=== PATIENT | female | born 1985 | race Caucasian/White ===

== ENCOUNTER 2016-04-02 12:28 | Emergency (ER) | payer SELFPAY ==
[2016-04-02 14:01] VITALS: BP 120/68
--- NOTE | 2016-04-03 07:55 | ED Physician Documentation ---
Ear Complaints - HISTORIAN Historian: patient - HPI Stated Complaint: Left Ear Pain Chief Complaint: Ear Complaints Timing: still present Location of Pain: L ear Severity: moderate Associated Symptoms: sharp pain Further Comments: no - ROS CONST: no problems CVS/RESP: none GI/: denies: black stools, nausea, vomiting MS/SKIN/LYMPH: none NEURO/PSYCH: denies: weakness, numbness, anxiety, depression All Systems -: Yes - PAST HX Past History: other (psych issues) Immunizations: referred to PCP Allergies/Adverse Reactions: Allergies Allergy/AdvReac Type Severity Reaction Status Date / Time No Known Allergies Allergy Verified 02/02/16 18:58 Home Medications: Ambulatory Orders Medication Instructions Recorded Fluoxetine HCl [Prozac] 10 mg PO DAILY 01/22/16 Olanzapine [Zyprexa] 5 mg pe PO DAILY 01/22/16 Trazodone HCl [Trazodone HCl] 50 mg pe PO HS 01/22/16 - SOCIAL HX Smoking History: cigarettes Alcohol Use: none Drug Use: none - FAMILY HX Family History: No - VITAL SIGNS Vital Signs: Vital Signs Temp Pulse Resp BP Pulse Ox 97.7 F 66 18 120/68 97 04/02/16 12:30 04/02/16 14:00 04/02/16 14:00 04/02/16 14:00 04/02/16 14:00 - REVIEWED ASSESSMENTS Nursing Assessment Reviewed: Yes Vitals Reviewed: Yes Progress - Results/Orders Results/Orders: strep screen ordered - Progress Progress: stable entire time in er Critical Care Note - Critical Care Note Total Time (mins): 0 ED Results Lab/Radiology - Lab Results Lab Results: Lab Results 04/02/16 13:20 Group A Strep Screen Positive H (NEGATIVE) - Radiology Radiology Impressions: none ordered - Orders Orders: ED Orders Category Date Time Status GRP A STREP SCREEN Routine Lab 04/02/16 13:20 Completed Ear Complaint Physical Exam - EXAM General Appearance: alert, moderate distress Ear: auricle nml, brand coordinator.[place]al nml, pain w movement of auricl, right, left Mouth/Throat: lips nml, gums nml, pharyngeal erythema Nose: nml inspection Head/Neck: atraumatic, neck nml inspection Eye: eyes nml inspection, PERRL Resp/CVS: chest non-tender, breath sounds nml, heart sounds nml, no resp. distress, lungs clear, reg. rate & rhythm Abdomen: non-tender, no organomegaly Skin: nml color, no skin rash Neuro/Psych: oriented x3, mood/affect nml Discharge Clincal Impression: Strep pharyngitis Referrals: Primary Doctor,No [Primary Care Provider] - 2 Days Home Medications: Ambulatory Orders Fluoxetine HCl [Prozac] 10 mg PO DAILY 01/22/16 Olanzapine [Zyprexa] 5 mg pe PO DAILY 01/22/16 Trazodone HCl [Trazodone HCl] 50 mg pe PO HS 01/22/16 Comments: home with scripts Condition: Stable Disposition: 01 HOME, SELF-CARE Decision to Admit: NO Decision Time: 13:50
== END 2016-04-02 14:00 | disposition home or self-care (01) ==
LOC: ED 12:28
DX: J02.0 Streptococcal pharyngitis (principal)
CPT/HCPCS: 87880; 99282

== ENCOUNTER 2016-08-16 13:50 | Emergency (ER) | payer SELFPAY ==
[2016-08-16 14:21] VITALS: BP 111/69
--- NOTE | 2016-08-16 14:51 | ED Physician Documentation ---
Ear Complaints - HISTORIAN Historian: patient - HPI Stated Complaint: bilateral ear pain Chief Complaint: Ear Complaints Timing: still present, worse Location of Pain: both ears Severity: severe Associated Symptoms: sharp pain. denies: fever, chills Further Comments: yes (30 year old female patient presents with complaints of bilateral ear pain since last Tuesday, using Tylenol with no improvement.) - ROS CONST: no problems CVS/RESP: none GI/: denies: nausea, vomiting MS/SKIN/LYMPH: none All Systems -: Yes - PAST HX Past History: other (DVT - 2013, resolved with medication) Allergies/Adverse Reactions: Allergies Allergy/AdvReac Type Severity Reaction Status Date / Time No Known Allergies Allergy Verified 02/02/16 18:58 Home Medications: Ambulatory Orders Medication Instructions Recorded NK [NK] 08/16/16 - SOCIAL HX Smoking History: cigarettes - FAMILY HX Family History: No - VITAL SIGNS Vital Signs: Vital Signs Temp Pulse Resp BP Pulse Ox 73 20 111/69 96 08/16/16 13:50 08/16/16 13:50 08/16/16 13:50 08/16/16 13:50 - REVIEWED ASSESSMENTS Nursing Assessment Reviewed: Yes Vitals Reviewed: Yes Ear Complaint Physical Exam - EXAM General Appearance: mild distress Ear: pain w movement of auricl, right, left, erythema, TM's nml Resp/CVS: chest non-tender, breath sounds nml, heart sounds nml Neuro/Psych: oriented x3, mood/affect nml Discharge Clincal Impression: Bilateral otitis externa Qualifiers: Otitis externa type: swimmer's ear Chronicity: acute Qualified Code(s): H60.333 - Swimmer's ear, bilateral Referrals: Primary Doctor,No [Primary Care Provider] - 2 Days Home Medications: Ambulatory Orders NK [NK] 08/16/16 Condition: Stable Disposition: 01 HOME, SELF-CARE Decision to Admit: NO Decision Time: 14:50
== END 2016-08-16 14:57 | disposition home or self-care (01) ==
LOC: ED 13:50
DX: H60.333 Swimmer's ear, bilateral (principal)
CPT/HCPCS: 99282; 99283

== ENCOUNTER 2016-09-16 20:24 | Emergency (ER) | payer SELFPAY ==
[2016-09-16] MEDS ORDERED: 0.9 % SODIUM CHLORIDE 1,000 ML IV ONE (20:43)
[2016-09-16] MEDS ORDERED: FLUMAZENIL 0.1 MG/ML 5ML VIAL IV ONE (20:46)
[2016-09-16] MEDS ORDERED: NALOXONE HCL 2 MG/2 ML IVP ONE (20:46)
[2016-09-16] MEDS ORDERED: 0.9 % SODIUM CHLORIDE 1,000 ML IV SCH (21:00)
[2016-09-16 21:06] LABS: BASOPHILS % 0.5 (0.0-1.5); EOSINOPHILS % 5.7 % (0.0-6.8); MEAN CORPUSCULAR HEMOGLOBIN 32.5 pg (28.0-34.0); MEAN CORPUSCULAR VOLUME 94.1 fl (80.0-100.0); MONOCYTES % 3.9 % (0.0-11.0); NEUTROPHILS # 6.6 # k/uL (1.4-7.7)
[2016-09-16 21:17] LABS: eGFR (African) > 60; eGFR (Non-African) > 60
--- NOTE | 2016-09-16 22:32 | ED Physician Documentation ---
General Adult - HISTORIAN Historian: patient - HPI Stated Complaint: intoxication Chief Complaint: General Adult Additional Information: pt claims she has been given "something" in her Dr. Bagley Onset: hours (1) Timing: still present Severity: moderate - ROS CONST: no problems EYES/ENT: none CVS/RESP: none GI/: none MS/SKIN/LYMPH: none NEURO/PSYCH: other (akesthetic) - PAST HX Past History: none Other History: none Surgeries/Procedures: none Immunizations: referred to PCP Allergies/Adverse Reactions: Allergies Allergy/AdvReac Type Severity Reaction Status Date / Time No Known Allergies Allergy Verified 09/16/16 20:35 Home Medications: Ambulatory Orders Medication Instructions Recorded NK [NK] 08/16/16 - SOCIAL HX Smoking History: cigarettes Alcohol Use: none Drug Use: marijuana, methamphetamines - FAMILY HX Family History: Yes - VITAL SIGNS Vital Signs: Vital Signs Temp Pulse Resp BP Pulse Ox 98.6 F 97 H 16 114/65 96 09/16/16 20:34 09/16/16 20:34 09/16/16 20:34 09/16/16 20:34 09/16/16 20:34 - REVIEWED ASSESSMENTS Nursing Assessment Reviewed: Yes Vitals Reviewed: Yes Progress - Results/Orders Results/Orders: labs unremarkable, thc in urine - Progress Progress: pt. given 1 mg romazicon and 1 mg narcan ivp in er with improvement in symptoms Critical Care Note - Critical Care Note Total Time (mins): 0 ED Results Lab/Radiology - Lab Results Lab Results: Lab Results 09/16/16 09/16/16 21:01 21:01 WBC 11.30 K/ul K/ul (4.00-12.00) RBC 4.08 M/ul M/ul (3.90-5.20) Hgb 13.3 g/dL g/dL (12.0-16.0) Hct 38.4 % % (34.5-46.5) MCV 94.1 fl fl (80.0-100.0) MCH 32.5 pg pg (28.0-34.0) MCHC 34.5 g/dL g/dL (30.0-36.0) RDW 13.3 % % (11.3-14.3) Plt Count 277 K/mm3 K/mm3 (130-400) Neut % (Auto) 58.0 % % (39.0-79.0) Lymph % (Auto) 30.9 % % (16.0-50.0) [place] % (Auto) 3.9 % % (0.0-11.0) Eos % (Auto) 5.7 % % (0.0-6.8) Baso % (Auto) 0.5 (0.0-1.5) Neut # (Auto) 6.6 # k/uL # k/uL (1.4-7.7) Lymph # (Auto) 3.5 # k/uL # k/uL (0.6-4.0) [place] # (Auto) 0.4 # k/uL # k/uL (0.0-0.9) Eos # (Auto) 0.6 # k/uL # k/uL (0.0-0.6) Baso # (Auto) 0.0 # k/uL # k/uL (0.0-0.5) Reactive Lymphs % 1.1 % % (0.0-5.0) Reactive Lymphs # 0.1 # k/uL # k/uL (0.0-0.8) Sodium 141 mmol/L mmol/L (136-145) Potassium 4.0 mmol/L mmol/L (3.5-5.0) Chloride 107 mmol/L mmol/L (98-110) Carbon Dioxide 26 mmol/L mmol/L (20-32) BUN 11 mg/dL mg/dL (10-26) Creatinine 0.6 mg/dL mg/dL (0.4-1.5) Estimated Creat Clear 173 Est GFR ( Amer) > 60 (60 - ) Est GFR (Non-Af Amer) > 60 (60 - ) Glucose 110 mg/dL H mg/dL (70-99) Calcium 8.9 mg/dL mg/dL (8.5-10.5) Total Bilirubin 0.2 mg/dL mg/dL (0.2-1.2) AST 22 U/L U/L (0-41) ALT 12 U/L U/L (0-45) Alkaline Phosphatase 57 U/L U/L (46-116) Total Protein 6.7 g/dL g/dL (6.0-8.5) Albumin 4.1 g/dL g/dL (3.0-5.5) Ethyl Alcohol Pending - Radiology Radiology Impressions: no x-rays ordered - Orders Orders: ED Orders Category Date Time Status Place IV Lock 1T Care 09/16/16 20:48 Active CBC/PLATELET/DIFF Routine Lab 09/16/16 21:01 Completed CMP Routine Lab 09/16/16 21:01 Results DRUG SCREEN URINE MEDICAL ONLY Routine Lab 09/16/16 Ordered ETHANOL MEDICAL USE ONLY Routine Lab 09/16/16 21:01 Results URINALYSIS Routine Lab 09/16/16 20:46 Ordered 0.9 % Sodium Chloride [Normal Saline] 1,000 ml Med 09/16/16 21:00 Ordered IV .Q1H 0.9 % Sodium Chloride [Normal Saline] 1,000 ml Med 09/16/16 20:43 Discontinued IV .STK-MED Flumazenil [Romazicon] Med 09/16/16 20:46 Discontinued 1 mg IV NOW ONE Naloxone HCl [Narcan] Med 09/16/16 20:46 Discontinued 1 mg IVP NOW ONE General Adult Physical Exam - PHYSICAL EXAM GENERAL APPEARANCE: moderate distress EENT: other (pupils constricted) NECK: normal inspection, thyroid normal RESPIRATORY: no resp distress, chest non-tender, breath sounds normal CVS: reg rate & rhythm, heart sounds normal, equal pulses, no murmur, no gallop , PMI nml, no JVD ABDOMEN: soft, no organomegaly, normal bowel sounds, no abdominal bruit, no distension, non-tender BACK: normal inspection, no CVA tenderness SKIN: warm/dry, normal color EXTREMITIES: non-tender, normal range of motion NEURO: oriented X3, CN's nml as tested, motor nml, other (akesthetic) Discharge Clincal Impression: Acute drug intoxication with delirium Referrals: Primary Doctor,No [Primary Care Provider] - 2 Days Home Medications: Ambulatory Orders NK [NK] 08/16/16 Comments: pt. discharged in stable condition Condition: Stable Disposition: 01 HOME, SELF-CARE Decision to Admit: NO Decision Time: 22:30
[2016-09-16 22:42] VITALS: BP 116/73
[2016-09-17 06:29] LABS: AMPHETAMINE NEGATIVE ng/mL (<1000); BARBITURATES NEGATIVE ng/mL (<300); CANNABINOIDS NON NEGATIVE ng/mL (< 50); COCAINE NEGATIVE ng/mL (<150); METHAMPHETAMINE NEGATIVE ng/mL (<1000); METHYLENEDIOXYMETHAMPHETAMINE NEGATIVE ng/mL (<500); MORPHINE NEGATIVE ng/mL (<300); OCCULT BLOOD,URINE 2+ (NEGATIVE); UROBILINOGEN URINE 0.2 Eu (0.2-1.0)
== END 2016-09-16 22:35 | disposition home or self-care (01) ==
LOC: ED 20:24
DX: F19.121 Other psychoactive substance abuse with intoxication delirium (principal)
CPT/HCPCS: 80053; 80320; 85025; J2310; J3490; J7030; 80377; 81002; 96361; 96374; 99283; G0480; G0481; S1016

== ENCOUNTER 2016-12-28 16:31 | Emergency (ER) | payer OTHER ==
--- NOTE | 2016-12-28 16:49 | ED Physician Documentation ---
Foot Injury - HISTORIAN Historian: patient - HPI Stated Complaint: right foot pain Chief Complaint: Lower Extremity Injury Onset: hours (1) Where: home Severity: moderate Context: twist, other (over walnuts ) Associated Symptoms:: swelling, popping sensation Modifying Factors:: pain on movement Further Comments: yes (small cut on lateral toe) - ROS CONST: no problems CVS/RESP: none NEURO: denies: headache, head injury, dizziness GI/: denies: nausea, vomiting MS/SKIN/LYMPH: none - PAST HX Past History: none Immunizations: tetanus (UTD ) Allergies/Adverse Reactions: Allergies Allergy/AdvReac Type Severity Reaction Status Date / Time No Known Allergies Allergy Verified 12/28/16 16:57 Home Medications: Ambulatory Orders Medication Instructions Recorded Tramadol HCl [Ultram] 50 mg PO Q6 PRN #20 tablet 12/28/16 - SOCIAL HX Smoking History: cigarettes Alcohol Use: none Drug Use: none - FAMILY HX Family History: none - VITAL SIGNS Vital Signs: Vital Signs Temp Pulse Resp BP Pulse Ox 116/73 09/16/16 22:35 - REVIEWED ASSESSMENTS Nursing Assessment Reviewed: Yes Vitals Reviewed: Yes ED Results Lab/Radiology - Radiology Radiology Impressions: Examination: Plain film foot History: Injury Findings: 3 views of the foot demonstrates normal cortical margins. No fracture or dislocation. No soft tissue swelling. No joint effusion. Impression: No acute osseous process. Electronically signed on Dec 28, 2016 5:07:41 PM CDT by: Joe Multani Foot Injury Physical Exam - Physical Exam General Appearance: no acute distress Foot: right foot: pain, soft tissue tenderness, swelling, other (small laceration on lateral great toe and mild swelling ), left foot: non-tender, normal inspection, normal range of motion, no evidence of injury, abrasions/ lacerations, bone tenderness, deformity, ecchymosis, infection, limited range of motion, nail injury Ankle: N/A: non-tender, normal inspection, normal range of motion, no evidence of injury, abrasions/laceration, bone tenderness, deformity, ecchymosis, joint effusion, limited range of motion, nodules, pain, soft tissue tenderness, swelling, other Gait: unable to bear weight Neuro: sensation nml, motor nml Vascular: no vascular compromise Skin: other (small laceration on lateral great toe (right foot)) Resp/CVS: chest non-tender, breath sounds nml, heart sounds nml, no resp. distress, lungs clear Discharge Clincal Impression: Foot pain Qualifiers: Laterality: right Qualified Code(s): M79.671 - Pain in right foot Prescriptions: Tramadol HCl [Ultram] 50 mg PO Q6 PRN #20 tablet PRN Reason: Pain Referrals: Primary Doctor,No [Primary Care Provider] - 2 Days Condition: Stable Disposition: 01 HOME, SELF-CARE Decision to Admit: NO Date of Decison to Admit: 12/28/16 Decision Time: 17:17
[2016-12-28 17:26] VITALS: BP 118/76
--- NOTE | 2016-12-28 17:40 | Diagnostic Imaging Report ---
[facility] [address] [facility].[address] [id number] Report Submission Date: Dec 28, 2016 5:07:41 PM CDT Patient Study Name: ZAY PINEDO Date: Dec 28, 2016 4:58:02 PM CDT Modality Type: CR Gender: F Description: LOWER EXTREMITY : 85 Institution: [facility] Physician: MARGARET ELI - ER Examination: Plain film foot History: Injury Findings: 3 views of the foot demonstrates normal cortical margins. No fracture or dislocation. No soft tissue swelling. No joint effusion. Impression: No acute osseous process. Electronically signed on Dec 28, 2016 5:07:41 PM CDT by: Joe DEL CASTILLO
== END 2016-12-28 17:24 | disposition home or self-care (01) ==
LOC: ED 16:31
DX: M79.671 Pain in right foot (principal)
CPT/HCPCS: 73630; 99283; L3260

== ENCOUNTER 2017-01-16 02:43 | Emergency (ER) | payer OTHER ==
--- NOTE | 2017-01-16 03:26 | ED Physician Documentation ---
General Adult - HISTORIAN Historian: patient - HPI Stated Complaint: burning after intercourse Chief Complaint: General Adult Onset: hours Timing: still present Severity: moderate Further Comments: yes (Pt is a 31 yo female who c/o vaginal burning after intercourse. Pt had no issues prior to intercourse, no vag discharge, burning, rash, vesicles, or other problems. No urinary sx. Pt states that she did not use lubricant or gels during intercoarse. Burning was intravaginal and extravaginal and has decreased after washing, but is still there.) - ROS CONST: no problems EYES/ENT: none CVS/RESP: none GI/: other (vag burning) MS/SKIN/LYMPH: none - PAST HX Past History: other () Allergies/Adverse Reactions: Allergies Allergy/AdvReac Type Severity Reaction Status Date / Time No Known Allergies Allergy Verified 01/16/17 02:52 Home Medications: Ambulatory Orders Medication Instructions Recorded NK [NK] 01/16/17 - SOCIAL HX Smoking History: cigarettes Alcohol Use: none Drug Use: marijuana - FAMILY HX Family History: No - VITAL SIGNS Vital Signs: Vital Signs Temp Pulse Resp BP Pulse Ox 88 16 133/86 96 01/16/17 02:45 01/16/17 02:45 01/16/17 02:45 01/16/17 02:45 - REVIEWED ASSESSMENTS Nursing Assessment Reviewed: Yes Vitals Reviewed: Yes Progress - Progress Progress: few clue cells seen on wet prep; no yeast or trichomonas. Diagnosis: possible bacterial vaginosis. Rx Metronidazole 500 mg. Take one every 12 hrs for 7 days. Do not use alcohol while taking Metronidazole. (Rx same for partner Ebenezer Babcock; no allergies) General Adult Physical Exam - PHYSICAL EXAM GENERAL APPEARANCE: mild distress NECK: normal inspection, supple RESPIRATORY: no resp distress, chest non-tender, breath sounds normal CVS: reg rate & rhythm, heart sounds normal ABDOMEN: soft, no organomegaly, normal bowel sounds, other (pelvic exam: normal) BACK: normal inspection, no CVA tenderness SKIN: warm/dry, normal color EXTREMITIES: non-tender, normal range of motion NEURO: oriented X3, motor nml, sensation nml Discharge Clincal Impression: possible bacterial vaginosis Referrals: Primary Doctor,No [Primary Care Provider] - Condition: Good Disposition: 01 HOME, SELF-CARE Decision to Admit: NO Decision Time: 03:38
[2017-01-16 03:55] VITALS: BP 132/84
[2017-01-17 07:10] LABS: APPEARANCE,URINE CLEAR (CLEAR); COLOR,URINE YELLOW (YELLOW); OCCULT BLOOD,URINE 1+ (NEGATIVE); PH URINE 6.5 (5.0 - 8.0); UROBILINOGEN URINE 0.2 Eu (0.2-1.0)
== END 2017-01-16 03:40 | disposition home or self-care (01) ==
LOC: ED 02:43
DX: R10.2 Pelvic and perineal pain (principal)
CPT/HCPCS: 81002; 87491; 87591; 99283

== ENCOUNTER 2017-01-28 13:34 | Emergency (ER) | payer SELFPAY ==
--- NOTE | 2017-01-28 13:50 | ED Physician Documentation ---
General Adult - HISTORIAN Historian: patient - HPI Stated Complaint: right sided face swelling Chief Complaint: Dental Pain Onset: hours (2) Timing: still present Severity: moderate Further Comments: yes (states she went to sleep last night and when she woke up she had this swelling in her face and she has pain as well. She does note a dental issue but denies ever having a dental abcess that felt like this. Denies a fever No sore throat) Last known Well Date: 01/27/17 Last Known Well Time: 23:00 Last known Well Code/Unknown Code: Unknown - ROS CONST: denies: fever, recent illness EYES/ENT: other (pain in right eye ) CVS/RESP: denies: shortness of breath, cough GI/: none MS/SKIN/LYMPH: other (face on right side with redness and swelling ) - PAST HX Past History: none Other History: none Surgeries/Procedures: none Immunizations: referred to PCP Allergies/Adverse Reactions: Allergies Allergy/AdvReac Type Severity Reaction Status Date / Time No Known Allergies Allergy Verified 01/28/17 13:53 Home Medications: Ambulatory Orders Medication Instructions Recorded Penicillin V Potassium [Pen V K] 500 mg PO TID #30 tablet 01/28/17 Tramadol HCl [Ultram] 50 mg PO BID PRN #10 tablet 01/28/17 - SOCIAL HX Smoking History: cigarettes Alcohol Use: none Drug Use: none - FAMILY HX Family History: No - VITAL SIGNS Vital Signs: Vital Signs Temp Pulse Resp BP Pulse Ox 132/84 01/16/17 03:40 - REVIEWED ASSESSMENTS Nursing Assessment Reviewed: Yes Vitals Reviewed: Yes General Adult Physical Exam - PHYSICAL EXAM GENERAL APPEARANCE: no distress EENT: eye inspection normal, ENT inspection normal. No: pharyngeal erythema NECK: normal inspection RESPIRATORY: no resp distress, chest non-tender, breath sounds normal CVS: reg rate & rhythm, heart sounds normal, equal pulses, no murmur, other ( uvula midline ) ABDOMEN: soft SKIN: other (right side of face with swelling and redness ) EXTREMITIES: non-tender NEURO: oriented X3, CN's nml as tested, motor nml, sensation nml Discharge Clincal Impression: Dental abscess Prescriptions: Penicillin V Potassium [Pen V K] 500 mg PO TID #30 tablet Tramadol HCl [Ultram] 50 mg PO BID PRN #10 tablet PRN Reason: Pain Referrals: Primary Doctor,No [Primary Care Provider] - 2 Days Additional Instructions: Take Ibuprofen 800 mg BID as needed for pain/swelling Warm salt water gargles See dentist as needed Condition: Stable Disposition: 01 HOME, SELF-CARE Decision to Admit: NO Date of Decison to Admit: 01/28/17 Decision Time: 14:14
[2017-01-28] MEDS ORDERED: CLINDAMYCIN PHOSPHATE 300 MG/2 ML VIAL IM ONE (13:55)
[2017-01-28] MEDS ORDERED: KETOROLAC TROMETHAMINE 60 MG/2 ML VIAL IM ONE (13:56)
[2017-01-28] MEDS ORDERED: KETOROLAC TROMETHAMINE 60 MG/2 ML VIAL ONE (13:57)
[2017-01-28 14:23] VITALS: BP 120/68
== END 2017-01-28 14:22 | disposition home or self-care (01) ==
LOC: ED 13:34
DX: K04.7 Periapical abscess without sinus (principal)
CPT/HCPCS: J1885; J3490; 96372; 99283